=== PATIENT | female | born 1935 | race Caucasian/White ===

== ENCOUNTER 2016-11-28 11:05 | Emergency (ER) | payer OTHER, BC ==
[2016-11-28 11:18] LABS: BASOPHIL 0.7 % (0-2.0); EOSINOPHIL 0.6 % (0-4.5); MCH 29.2 pg (25.7-33.7); MCHC 34.5 g/dl (32.0-36.0); MEAN CELL VOLUME 84.7 fl (80-96); MEAN PLT VOLUME 8.1 fl (7.5-11.1); NEUTROPHILS 67.4 % (42.8-82.8); PLATELET COUNT 241 K/MM3 (134-434); RDW 13.4 % (11.6-15.6); WHITE BLOOD COUNT 8.6 K/mm3 (4.0-10.8)
[2016-11-28 11:37] LABS: ALBUMIN 4.3 g/dl (3.5-5.0); ALK PHOS 36 U/L (32-92); ANION GAP 7 (8-16); BILIRUBIN,TOTAL 0.9 mg/dl (0.2-1.0); CALCIUM 9.7 mg/dl (8.4-10.2); CO2 25 mmol/L (22-28); CPK 125 IU/L (26-192); CREATININE 0.8 mg/dl (0.6-1.3); GLUCOSE,RANDOM 105 mg/dl (74-106); SGOT/AST 15 U/L (10-42); SGPT/ALT 19 U/L (10-40); TOT PROT 6.8 g/dl (6.4-8.3)
[2016-11-28] MEDS ORDERED: MAGNESIUM SULF 50% (8.12 MEQ/2 ML-1 GM VIAL) IVPB ONE (11:50)
[2016-11-28] MEDS ORDERED: LORazepam 0.5 MG TABLET PO ONE (11:50)
[2016-11-28] MEDS ORDERED: LORazepam 0.5 MG TABLET ONE (11:51)
[2016-11-28 11:53] VITALS: BP 176/81; PULSE 72; TEMP 98.1; BMI 25.9
--- NOTE | 2016-11-28 11:53 | PDOC ---
History of Present Illness - General Chief Complaint: Palpitations Stated Complaint: palpatation Time Seen by Provider: 11/28/16 11:07 Past History - Past Medical History Allergies/Adverse Reactions: Allergies Allergy/AdvReac Type Severity Reaction Status Date / Time No Known Allergies Allergy Unverified 11/28/16 11:50 Home Medications: Ambulatory Orders Amlodipine Besylate 10 mg PO DAILY 11/28/16 Atenolol [Tenormin -] 50 mg PO DAILY 11/28/16 Hydrochlorothiazide [Hctz -] 25 mg PO DAILY 11/28/16 Irbesartan 300 mg PO DAILY 11/28/16 Levothyroxine [Synthroid -] 50 mcg PO DAILY 11/28/16 Lorazepam [Ativan] 0.5 mg PO TID #15 tablet MDD 3 11/28/16 Potassium Chloride [Klor-Con 10] 10 meq PO DAILY 11/28/16 Rosuvastatin [Crestor -] 10 mg PO DAILY 11/28/16 HTN: Yes Hypercholesterolemia: Yes Seizures: Yes - Psycho/Social/Smoking Cessation Hx Anxiety: No Suicidal Ideation: No Smoking History: Never smoked Have you smoked in the past 12 months: No Information on smoking cessation initiated: No Hx Alcohol Use: No Drug/Substance Use Hx: No Substance Use Type: None *Physical Exam - Vital Signs Last Vital Signs Temp Pulse Resp BP Pulse Ox 98.1 F 72 20 176/81 97 11/28/16 11:07 11/28/16 11:07 11/28/16 11:07 11/28/16 11:07 11/28/16 11:07 - Physical Exam General Appearance: Yes: Nourished, Appropriately Dressed. No: Apparent Distress HEENT: positive: EOMI, JACOBO, Normal ENT Inspection, Normal Voice, Symmetrical, TMs Normal, Pharynx Normal Neck: positive: Trachea midline, Normal Thyroid, Supple Respiratory/Chest: positive: Lungs Clear, Normal Breath Sounds. negative: Respiratory Distress, Accessory Muscle Use Cardiovascular: positive: Regular Rhythm, S1, S2, Bradycardia. negative: Regular Rate Vascular Pulses: Femoral (R): 2+, Femoral (L): 2+, Carotid (R): 2+, Carotid (L) : 2+, Dorsalis-Pedis (R): 2+, Doralis-Pedis (L): 2+ Gastrointestinal/Abdominal: positive: Normal Bowel Sounds, Flat, Soft Musculoskeletal: positive: Normal Inspection Extremity: positive: Normal Capillary Refill, Normal Inspection Integumentary: positive: Normal Color, Dry, Warm Deep Tendon Reflexes: Knee (L): 2+, Knee (R): 2+, Bicep (L): 2+, Bicep (R): 2+ ED Treatment Course - LABORATORY CBC & Chemistry Diagram: 11/28/16 11:11 11/28/16 11:11 - ADDITIONAL ORDERS Additional order review: Laboratory Results 11/28/16 11:11 Sodium 135 L Potassium 3.5 Chloride 103 Carbon Dioxide 25 Anion Gap 7 L BUN 13 Creatinine 0.8 Creat Clearance w eGFR > 60 Random Glucose 105 Calcium 9.7 Total Bilirubin 0.9 AST 15 ALT 19 Alkaline Phosphatase 36 Creatine Kinase 125 Total Protein 6.8 Albumin 4.3 11/28/16 11:11 RBC 4.63 MCV 84.7 MCHC 34.5 RDW 13.4 MPV 8.1 Neutrophils % 67.4 Lymphocytes % 24.7 Monocytes % 6.6 Eosinophils % 0.6 Basophils % 0.7 - RADIOLOGY Radiology Studies Ordered: Category Date Time Status CHEST PA & LAT [RAD] Stat Radiology 11/28/16 11:51 Ordered Medical Decision Making - Medical Decision Making 11/28/16 18:49 Labs normal, exam normal, CXR normal, EKG sinus bradycardia. Pt given ativan PO 0.5mg for anxiety. Pt is on beta clocker, [id number], HCTZ and an vishal inhibitor. 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 SHe was also referred to [facility] cardiology dept for a holter monitor. Pt feeling vastly improved in the ER. *DC/Admit/Observation/Transfer Diagnosis at time of Disposition: Palpitations - Discharge Dispostion Disposition: HOME Condition at time of disposition: Stable Admit: No - Prescriptions Prescriptions: Lorazepam [Ativan] 0.5 mg PO TID #15 tablet MDD 3 - Referrals Referrals: Dio Loomis MD [Staff Physician] - Mayank Bedoya [Non Staff, Medical] - ePe Hdez [Non Staff, Medical] - - Patient Instructions Printed Discharge Instructions: DI for Palpitations, DI for Ambulatory Cardiac Monitoring Additional Instructions: Call [phone], Cardiology Department to set up a holter monitor
[2016-11-28 11:57] LABS: TROPONIN I (DFP) < 0.03 ng/ml (0.03-0.50)
[2016-11-28 13:18] LABS: PH,URINE 7.5 (4.5-8); URINE APPEARANCE Clear; URINE BILIRUBIN Negative (NEGATIVE); URINE BLOOD Trace-lysed (NEGATIVE); URINE COLOR YELLOW; URINE GLUCOSE (UA) Negative (NEGATIVE); URINE KETONE Negative (NEGATIVE); URINE LEUK ESTERASE Negative (NEGATIVE); URINE NITRITE Negative (NEGATIVE); URINE PROTEIN Negative (NEGATIVE); URINE RBC 0-3 /hpf (0-3); URINE UROBILINOGEN 0.2 (0.2-1.0); URINE WBC 0-3 (3-5)
[2016-11-28 13:19] LABS: URINE BACTERIA FEW /hpf (NEGATIVE)
--- NOTE | 2016-11-29 08:50 | EKG ---
Test Reason : Blood Pressure : / mmHG Vent. Rate : 051 BPM Atrial Rate : 051 BPM P-R Int : 176 ms QRS Dur : 074 ms QT Int : 450 ms P-R-T Axes : 069 -04 020 degrees QTc Int : 414 ms SINUS BRADYCARDIA CANNOT RULE OUT SEPTAL INFARCT , AGE UNDETERMINED ABNORMAL ECG WHEN COMPARED WITH ECG OF 08-DEC-2000 12:40, Q waves are now present in V1-2 Confirmed by MITZY MANJARREZ, PIERRE ([id number]) on 11/29/2016 8:50:15 AM Referred By: DEYA Confirmed By:PIERRE FORRESTER MD
== END 2016-11-28 13:44 | disposition home or self-care (01) ==
LOC: FER 11:05
PROC: 3E033GC Introduction of Other Therapeutic Substance into Peripheral Vein, Percutaneous Approach (ICD-10-PCS; principal; 2016-11-28)
DX: R00.2 Palpitations (principal); I10 Essential (primary) hypertension; E78.00 Pure hypercholesterolemia, unspecified
CPT/HCPCS: 36415; 71020-TC; 80053; 81003; 81015; 84484; 85025; 93005; 96374; 99282-25

== ENCOUNTER 2021-05-21 12:57 | Inpatient (IN) | payer OTHER, BC ==
[2021-05-21 15:47] LABS: HEMATOCRIT 38.2 % (32.4-45.2); HEMOGLOBIN 13.1 GM/dL (10.7-15.3); LYMPH % 28.5 % (8-40); MCH 28.9 pg (25.7-33.7); MCHC 34.3 g/dl (32.0-36.0); MEAN CELL VOLUME 84.1 fl (80-96); MEAN PLT VOLUME 8.5 fl (7.5-11.1); MONO % 8.4 % (3.8-10.2); NEUT % 61.1 % (42.8-82.8); PLATELET COUNT 251 10^3/uL (134-434); RBC 4.54 M/mm3 (3.60-5.2); RDW 14.7 % (11.6-15.6); WHITE BLOOD COUNT 8.7 K/mm3 (4.0-10.0)
[2021-05-21 16:05] LABS: ALBUMIN 4.2 g/dl (3.4-5.0); CALCIUM 9.7 mg/dL (8.5-10.1)
[2021-05-21 16:06] LABS: BLOOD UREA NITROGEN 23.2 mg/dL (7-18); MAGNESIUM 2.5 mg/dL (1.8-2.4)
[2021-05-21 16:09] LABS: CREATININE 1.1 mg/dL (0.55-1.3)
[2021-05-21 16:10] LABS: BILIRUBIN,TOTAL 0.3 mg/dL (0.2-1); TOT PROT 7.8 g/dl (6.4-8.2)
[2021-05-21 17:01] LABS: EPI CELLS >36 /uL (0-25.1); HYALINE CASTS 1 /uL (0-3.1); PH,URINE 6.5 (5.0-8.0); URINE APPEARANCE CLEAR; URINE BACTERIA 110 /uL (0-1359); URINE BILIRUBIN NEGATIVE (NEGATIVE); URINE COLOR YELLOW; URINE GLUCOSE (UA) NEGATIVE (NEGATIVE); URINE KETONE NEGATIVE (NEGATIVE); URINE LEUK ESTERASE 1+ (NEGATIVE); URINE NITRITE NEGATIVE (NEGATIVE); URINE PROTEIN NEGATIVE (NEGATIVE); URINE RBC 10 /uL (0-23.9); URINE UROBILINOGEN 0.2 mg/dL (0.2-1.0); URINE WBC 33 /uL (0-25.8)
[2021-05-21] MEDS ORDERED: ACETAMINOPHEN 325 MG TABLET (FP) PO PRN (20:33)
[2021-05-21] MEDS ORDERED: POLYETHYLENE GLYCOL (HEALTHYLAX) 3350 17 GM PACKET PO PRN (20:33)
[2021-05-21] MEDS ORDERED: ATORVASTATIN CA 40 MG TABLET (FP) ONE (22:12)
[2021-05-21] MEDS: ATORVASTATIN CA 40 MG TABLET (FP) PO SCH (23:49)
[2021-05-21] MEDS: MEMANTINE HCL 10 MG TABLET (FP) PO SCH (23:49)
[2021-05-22 01:20] LABS: INR 1.15 (0.83-1.09); PROTHROMBIN TIME (PATIENT) 13.3 SEC (9.7-13.0)
[2021-05-22] MEDS ORDERED: LEVOTHYROXINE NA 25 MCG TABLET (FP) ONE (05:55)
[2021-05-22] MEDS: LEVOTHYROXINE NA 50 MCG TABLET (FP) PO SCH (06:21)
[2021-05-22 08:34] LABS: BASO % 0.5 % (0-2.0); EOS % 1.2 % (0-4.5); HEMATOCRIT 37.1 % (32.4-45.2); LYMPH % 27.3 % (8-40); MCH 29.4 pg (25.7-33.7); MEAN CELL VOLUME 84.1 fl (80-96); MONO % 7.5 % (3.8-10.2); NEUT % 63.5 % (42.8-82.8); PLATELET COUNT 229 10^3/uL (134-434); RBC 4.41 M/mm3 (3.60-5.2); RDW 14.8 % (11.6-15.6); WHITE BLOOD COUNT 8.5 K/mm3 (4.0-10.0)
[2021-05-22 08:54] LABS: CALCIUM 9.6 mg/dL (8.5-10.1)
[2021-05-22 08:55] LABS: BLOOD UREA NITROGEN 23.7 mg/dL (7-18)
[2021-05-22 08:58] LABS: CREATININE 1.2 mg/dL (0.55-1.3)
[2021-05-22] MEDS ORDERED: ESCITALOPRAM OXALATE 10 MG TABLET ONE (09:34)
[2021-05-22] MEDS ORDERED: ATENOLOL 25 MG TABLET (FP) ONE ×2 (09:34→09:35)
[2021-05-22] MEDS: ESCITALOPRAM OXALATE 10 MG TABLET PO SCH (09:43)
[2021-05-22] MEDS: ATENOLOL 25 MG TABLET (FP) PO SCH (09:43)
[2021-05-22] MEDS: MEMANTINE HCL 10 MG TABLET (FP) PO SCH ×2 (11:00→22:35)
[2021-05-22] MEDS ORDERED: DEXTROSE 5%-0.45% SALINE 1,000 ML IV SCH (14:15)
[2021-05-22] MEDS ORDERED: MECLIZINE HCL 25 MG TABLET (FP) ONE (14:55)
[2021-05-22] MEDS: MECLIZINE HCL 25 MG TABLET (FP) PO SCH ×2 (15:30→22:35)
[2021-05-22] MEDS: DEXTROSE 5%-0.45% SALINE 1,000 ML IV SCH (21:00)
[2021-05-22] MEDS: ATORVASTATIN CA 40 MG TABLET (FP) PO SCH (22:35)
[2021-05-22] MEDS: QUEtiapine FUMARATE 25 MG TABLET PO PRN (22:35)
[2021-05-23 01:21] VITALS: BMI 33.7
[2021-05-23] MEDS: LEVOTHYROXINE NA 50 MCG TABLET (FP) PO SCH (06:26)
[2021-05-23] MEDS: MECLIZINE HCL 25 MG TABLET (FP) PO SCH ×3 (06:26→21:10)
[2021-05-23] MEDS: ESCITALOPRAM OXALATE 10 MG TABLET PO SCH (10:01)
[2021-05-23] MEDS: ATENOLOL 25 MG TABLET (FP) PO SCH (10:02)
[2021-05-23] MEDS: MEMANTINE HCL 10 MG TABLET (FP) PO SCH ×2 (10:02→21:10)
[2021-05-23] MEDS: DEXTROSE 5%-0.45% SALINE 1,000 ML IV SCH (14:30)
[2021-05-23] MEDS: ATORVASTATIN CA 40 MG TABLET (FP) PO SCH (21:10)
[2021-05-23] MEDS ORDERED: ZOLPIDEM TARTRATE 5 MG TABLET PO PRN (22:00)
[2021-05-24] MEDS: MECLIZINE HCL 25 MG TABLET (FP) PO SCH ×3 (05:39→21:05)
[2021-05-24] MEDS: LEVOTHYROXINE NA 50 MCG TABLET (FP) PO SCH (06:23)
[2021-05-24 07:33] LABS: BASO % 0.6 % (0-2.0); EOS % 1.5 % (0-4.5); HEMATOCRIT 32.8 % (32.4-45.2); HEMOGLOBIN 11.5 GM/dL (10.7-15.3); LYMPH % 28.7 % (8-40); MCH 29.1 pg (25.7-33.7); MCHC 34.9 g/dl (32.0-36.0); MEAN CELL VOLUME 83.5 fl (80-96); MEAN PLT VOLUME 8.3 fl (7.5-11.1); NEUT % 59.2 % (42.8-82.8); PLATELET COUNT 186 10^3/uL (134-434); RBC 3.93 M/mm3 (3.60-5.2); RDW 14.7 % (11.6-15.6); WHITE BLOOD COUNT 8.5 K/mm3 (4.0-10.0)
[2021-05-24 07:34] LABS: CALCIUM 8.2 mg/dL (8.5-10.1)
[2021-05-24] MEDS: ESCITALOPRAM OXALATE 10 MG TABLET PO SCH (10:22)
[2021-05-24] MEDS: ATENOLOL 25 MG TABLET (FP) PO SCH (10:22)
[2021-05-24] MEDS: MEMANTINE HCL 10 MG TABLET (FP) PO SCH ×2 (10:22→21:05)
[2021-05-24] MEDS: DEXTROSE 5%-0.45% SALINE 1,000 ML IV SCH (18:49)
[2021-05-24] MEDS: MELATONIN 5 MG TABLETS PO SCH (21:05)
[2021-05-24] MEDS: ATORVASTATIN CA 40 MG TABLET (FP) PO SCH (21:05)
[2021-05-25] MEDS: DEXTROSE 5%-0.45% SALINE 1,000 ML IV SCH ×2 (02:20→15:13)
[2021-05-25] MEDS: MECLIZINE HCL 25 MG TABLET (FP) PO SCH ×3 (05:46→21:23)
[2021-05-25] MEDS: LEVOTHYROXINE NA 50 MCG TABLET (FP) PO SCH (06:44)
[2021-05-25 07:35] LABS: BLOOD UREA NITROGEN 15.3 mg/dL (7-18); MAGNESIUM 1.9 mg/dL (1.8-2.4)
[2021-05-25 07:36] LABS: CALCIUM 8.6 mg/dL (8.5-10.1)
[2021-05-25 07:38] LABS: CREATININE 0.8 mg/dL (0.55-1.3)
[2021-05-25 08:24] LABS: BASO % 0.6 % (0-2.0); EOS % 1.8 % (0-4.5); HEMATOCRIT 32.5 % (32.4-45.2); HEMOGLOBIN 11.2 GM/dL (10.7-15.3); LYMPH % 26.1 % (8-40); MCH 28.9 pg (25.7-33.7); MCHC 34.4 g/dl (32.0-36.0); MEAN CELL VOLUME 84.2 fl (80-96); MEAN PLT VOLUME 8.4 fl (7.5-11.1); MONO % 11.5 % (3.8-10.2); PLATELET COUNT 165 10^3/uL (134-434); RBC 3.86 M/mm3 (3.60-5.2); RDW 14.6 % (11.6-15.6); WHITE BLOOD COUNT 7.5 K/mm3 (4.0-10.0)
[2021-05-25] MEDS: ESCITALOPRAM OXALATE 10 MG TABLET PO SCH (10:05)
[2021-05-25] MEDS: MEMANTINE HCL 10 MG TABLET (FP) PO SCH ×2 (10:05→21:23)
[2021-05-25] MEDS: ATENOLOL 25 MG TABLET (FP) PO SCH (10:05)
[2021-05-25] MEDS: MELATONIN 5 MG TABLETS PO SCH (21:23)
[2021-05-25] MEDS: QUEtiapine FUMARATE 25 MG TABLET PO PRN (21:23)
[2021-05-25] MEDS: ATORVASTATIN CA 40 MG TABLET (FP) PO SCH (21:23)
[2021-05-26] MEDS: MECLIZINE HCL 25 MG TABLET (FP) PO SCH (06:00)
[2021-05-26] MEDS: LEVOTHYROXINE NA 50 MCG TABLET (FP) PO SCH (06:00)
[2021-05-26] MEDS ORDERED: POTASSIUM CHLORIDE TABS 20 MEQ TABLET.ER (FP) PO SCH (10:45)
[2021-05-26] MEDS: ESCITALOPRAM OXALATE 10 MG TABLET PO SCH (12:31)
[2021-05-26] MEDS: MEMANTINE HCL 10 MG TABLET (FP) PO SCH (12:32)
[2021-05-26] MEDS: ATENOLOL 25 MG TABLET (FP) PO SCH (12:32)
[2021-05-26 13:01] VITALS: BP 132/83; PULSE 106; TEMP 98.8
== END 2021-05-26 14:45 | disposition home or self-care (01) | DRG 149 ==
LOC: JER 12:57 → JERBED 17:37 → OBSVTOIN 05-22 13:54 → J4W 05-22 19:49
PROVIDERS: ADMIT Internal Medicine; ATTEND Internal Medicine
DX: R42 Dizziness and giddiness (principal); H40.9 Unspecified glaucoma; F03.90 Unspecified dementia, unspecified severity, without behavioral disturbance, psychotic disturbance, mood disturbance, and anxiety; E78.5 Hyperlipidemia, unspecified; E03.9 Hypothyroidism, unspecified; Z86.73 Personal history of transient ischemic attack (TIA), and cerebral infarction without residual deficits; R05.8 Other specified cough; R26.81 Unsteadiness on feet; R00.2 Palpitations; E66.9 Obesity, unspecified; Z68.33 Body mass index [BMI] 33.0-33.9, adult
CPT/HCPCS: 36415; 70450-TC; 70551-TC; 71045-TC-FY; 80048; 80053; 80061; 81003; 83036; 83735; 84443; 84484; 85025; 85610; 85730; 87086; 87186; 93005; 93010; 93306-TC; 93880-TC; 99285-25; C9803; G0378; U0003; U0005

== ENCOUNTER 2024-03-01 20:46 | Inpatient (IN) | payer OTHER, BC ==
[2024-03-02] MEDS ORDERED: ACETAMINOPHEN INJECTION 100 ML ONE (00:42)
[2024-03-02] MEDS: ACETAMINOPHEN 1000 MG/100 ML BAG IVPB ONE (00:55)
[2024-03-02 06:37] VITALS: BMI 30.6
[2024-03-02 08:52] LABS: CALCIUM 9.1 mg/dl (8.5-10.1); POTASSIUM 3.6 mmol/L (3.5-5.1)
[2024-03-02 09:39] LABS: BASO % 0.3 % (0-2.0); EOS % 0.2 % (0-4.5); HEMATOCRIT 35.7 % (32.4-45.2); HEMOGLOBIN 11.9 GM/dL (10.7-15.3); LYMPH % 17.6 % (8-40); MCH 28.2 pg (25.7-33.7); MCHC 33.3 g/dl (32.0-36.0); MEAN CELL VOLUME 84.6 fl (80-96); MEAN PLT VOLUME 8.6 fl (7.5-11.1); MONO % 11.5 % (3.8-10.2); NEUT % 70.4 % (42.8-82.8); PLATELET COUNT 178 10^3/uL (134-434); RBC 4.22 M/mm3 (3.60-5.2); RDW 14.7 % (11.6-15.6); WHITE BLOOD COUNT 9.1 K/mm3 (4.0-10.0)
[2024-03-02] MEDS: ACETAMINOPHEN 325 MG TABLET (FP) PO ONE (11:16)
[2024-03-02] MEDS: REMDESIVIR 200 MG in SODIUM CHLORIDE 250 ML IVPB ONE (11:25)
[2024-03-02 23:38] LABS: HEMATOCRIT 37.4 % (32.4-45.2); HEMOGLOBIN 12.6 G/dL (10.7-15.3); MCH 28.7 pg (25.7-33.7); MCHC 33.6 g/dl (32.0-36.0); MEAN CELL VOLUME 85.5 fl (80-96); MEAN PLT VOLUME 8.8 fl (7.5-11.1); PLATELET COUNT 161.7 10^3/uL (134-434); RBC 4.38 10^6/uL (3.60-5.2); RDW 15.4 % (11.6-15.6); WHITE BLOOD COUNT 8.6 10^3/uL (4.0-10.8)
[2024-03-02 23:54] LABS: ALBUMIN 4.1 g/dl (3.4-5.0); BILIRUBIN,TOTAL 0.4 mg/dl (0.2-1); PHOSPHOROUS 3.1 (2.5-4.9); POTASSIUM 3.5 mmol/L (3.5-5.1); TOT PROT 6.9 g/dl (6.4-8.2)
[2024-03-03 09:26] LABS: BILIRUBIN,TOTAL 0.4 mg/dl (0.2-1); CREATININE 0.9 mg/dl (0.6-1.3); POTASSIUM 3.6 mmol/L (3.5-5.1); TOT PROT 6.6 g/dl (6.4-8.2)
[2024-03-03 09:58] LABS: BASO % 0.5 % (0-2.0); EOS % 0.5 % (0-4.5); HEMATOCRIT 34.4 % (32.4-45.2); HEMOGLOBIN 11.6 GM/dL (10.7-15.3); LYMPH % 25.4 % (8-40); MCH 28.5 pg (25.7-33.7); MCHC 33.8 g/dl (32.0-36.0); MEAN CELL VOLUME 84.3 fl (80-96); MEAN PLT VOLUME 9.1 fl (7.5-11.1); MONO % 13.4 % (3.8-10.2); NEUT % 60.2 % (42.8-82.8); PLATELET COUNT 174 10^3/uL (134-434); RBC 4.08 M/mm3 (3.60-5.2); RDW 15.2 % (11.6-15.6); WHITE BLOOD COUNT 6.7 K/mm3 (4.0-10.0)
[2024-03-03] MEDS: REMDESIVIR 100 MG in SODIUM CHLORIDE 250 ML IVPB SCH (11:25)
[2024-03-03] MEDS: HALOPERIDOL LACTATE 5 MG/ML IM ONE (15:20)
[2024-03-03] MEDS: ACETAMINOPHEN 325 MG TABLET (FP) PO PRN (22:57)
[2024-03-03 23:05] VITALS: RESP 16
[2024-03-04 12:00] VITALS: BP 144/82; PULSE 81; TEMP 98
== END 2024-03-04 13:16 | disposition home or self-care (01) | DRG 179 ==
LOC: FER 20:46 → FM/S 03-02 00:21 → UNDOADMOB 03-02 00:57 → FM/S 03-02 00:57 → OBSVTOIN 03-02 12:47 → FM/S 03-02 20:35
PROVIDERS: ADMIT Internal Medicine
PROC: XW033E5 Introduction of Remdesivir Anti-infective into Peripheral Vein, Percutaneous Approach, New Technology Group 5 (ICD-10-PCS; principal; 2024-03-02)
DX: U07.1 COVID-19 (principal); I10 Essential (primary) hypertension; E78.5 Hyperlipidemia, unspecified; E03.9 Hypothyroidism, unspecified; G30.9 Alzheimer's disease, unspecified; F02.80 Dementia in other diseases classified elsewhere, unspecified severity, without behavioral disturbance, psychotic disturbance, mood disturbance, and anxiety
CPT/HCPCS: 0241U-QW; 36415; 70450-TC; 71045-TC-FY; 80048; 80053; 82550; 83605; 83735; 84100; 84484; 85025; 85027; 86140; 87040; 87086; 93005; 99285-25; G0378; J0131; J0248